=== PATIENT | female | born 1950 | race Caucasian/White ===

== ENCOUNTER → 2024-06-08 12:51 | Outpatient (REF) | payer MEDICARE, OTHER, SELFPAY | LOC: RAD 12:51 | PROVIDERS: ATTENDING PHYSICIAN Internal Medicine | DX: M85.80 Other specified disorders of bone density and structure, unspecified site (principal); E55.9 Vitamin D deficiency, unspecified; M85.89 Other specified disorders of bone density and structure, multiple sites | CPT/HCPCS: 77080 ==

== ENCOUNTER → 2024-06-28 13:51 | Outpatient (REF) | payer MEDICARE, OTHER, SELFPAY | LOC: WDC 13:51 | PROVIDERS: ATTENDING PHYSICIAN Internal Medicine | DX: Z12.31 Encounter for screening mammogram for malignant neoplasm of breast (principal) | CPT/HCPCS: 77063; 77067 ==

== ENCOUNTER → 2024-12-11 10:49 | Outpatient (REF) | payer MEDICARE, OTHER, SELFPAY ==
[2024-12-11 11:53] LABS: % Basophils 0.4 % (0-2); % Eosinophils 0.5 % (0-6); % Immature Granulocytes 0.2 % (0-0.5); % Lymphocytes 28.7 % (20.5-51.1); % Monocytes 8.2 % (1.7-9.3); Absolute Lymphocytes 1.6 10^3/uL (1.2-3.4); Absolute Monocytes 0.5 10^3/uL (0.1-0.6); Absolute Neutrophils 3.5 10^3/uL (1.4-6.5); Hematocrit 42.8 % (37.0-47.0); Hemoglobin 14.5 g/dL (12.0-16.0); Mean Corp Hgb Conc. 33.9 g/dL (33.0-37.0); Mean Corpuscular Hgb 30.8 pg (27.0-31.0); Mean Corpuscular Volume 90.9 fL (81.0-99.0); Mean Platelet Volume 9.8 fL (7.4-10.4); Nucleated Red Blood Cells % 0 %; Platelet Count 216 10^3/uL (130-400); Red Blood Cell Count 4.71 10^6/uL (4.20-5.40); Red Cell Dist. Width 11.9 % (11.5-14.5); White Blood Cell Count 5.6 10^3/uL (4.8-10.8)
[2024-12-11 12:09] LABS: Urine Albumin Negative (Neg - Trace); Urine Bilirubin Negative (Negative); Urine Character Slightly Cloudy (Clear); Urine Color Yellow; Urine Glucose Negative (Negative); Urine Ketone Negative (Negative); Urine Leukocyte 2+ (Negative); Urine Nitrite Negative (Negative); Urine Occult Blood Negative (Negative); Urine Urobilinogen Negative (Neg - 1+)
[2024-12-11 12:18] LABS: ALT (SGPT) 15 U/L (0-35); AST (SGOT) 25 U/L (14-36); Albumin 4.4 g/dl (3.5-5.0); Alkaline Phosphatase 74 U/L (38-126); Blood Urea Nitrogen 16 mg/dl (7-17); Calcium 9.1 mg/dl (8.4-10.2); Carbon Dioxide 29 mmol/L (22-30); Chloride 100 mmol/L (98-107); Glucose 94 mg/dl (70-99); HDL Cholesterol 85 mg/dl; LDL Cholesterol, Calculated 106 mg/dl; Potassium 4.6 mmol/L (3.5-5.1); Sodium 137 mmol/L (135-145); Total Bilirubin 0.8 mg/dl (0.2-1.3); Total Cholesterol 208 mg/dl (50-199); Total Protein 7.1 g/dl (6.3-8.2); Triglyceride 86 mg/dl (10-149); Very Low Density Lipoprotein 17 mg/dl (0-30); eGFR > 60.00
[2024-12-11 12:30] LABS: Urine Amorphous Seen; Urine Bacteria Few (Negative); Urine Red Blood Cell 0-2 /HPF (0-2); Urine White Cell 16-20 /HPF (0-5)
[2024-12-11 12:35] LABS: Vitamin D, 25-OH*** 36.3 ng/mL (30-80)
[2024-12-11 12:48] LABS: TSH 3.18 uIU/ml (0.47-4.68)
== END ==
LOC: REG 10:49
PROVIDERS: ATTENDING PHYSICIAN Internal Medicine
DX: E78.5 Hyperlipidemia, unspecified (principal); M81.0 Age-related osteoporosis without current pathological fracture; M15.0 Primary generalized (osteo)arthritis; E55.9 Vitamin D deficiency, unspecified; J31.0 Chronic rhinitis; Z00.00 Encounter for general adult medical examination without abnormal findings
CPT/HCPCS: 36415; 80053; 80061; 81003; 81015; 82306; 84443; 85025

== ENCOUNTER → 2024-12-25 11:37 | Outpatient (REF) | payer MEDICARE, OTHER, SELFPAY | LOC: RAD 11:37 | PROVIDERS: ATTENDING PHYSICIAN Internal Medicine | DX: N39.0 Urinary tract infection, site not specified (principal) | CPT/HCPCS: 72110 ==

== ENCOUNTER → 2025-06-21 19:28 | Outpatient (REF) | payer MEDICARE, OTHER, SELFPAY | LOC: WDC 19:28 | PROVIDERS: ATTENDING PHYSICIAN Internal Medicine | DX: Z12.31 Encounter for screening mammogram for malignant neoplasm of breast (principal) | CPT/HCPCS: 77063; 77067 ==

== ENCOUNTER 2025-07-01 07:47 | Inpatient (IN) | payer MEDICARE, OTHER, SELFPAY ==
--- NOTE | 2025-06-16 13:02 | CM ---
CM reviewed medical records. CM confirmed demographics with patient. Patient stated that she does live alone, but her boyfriend will be available to assist post operatively. Patient is active with her PCP. Patient has medication coverage. Patient
has ordered her walker and gel packs.
Patient has made her outpatient PT appointments at [facility] for 07/03.
CM will remain available as needed.
PLAN: Home, outpatient PT.
[2025-06-20 11:27] LABS: Hematocrit 39.4 % (37.0-47.0); Hemoglobin 13.4 g/dL (12.0-16.0); Mean Corp Hgb Conc. 34.0 g/dL (33.0-37.0); Mean Corpuscular Volume 90.4 fL (81.0-99.0); Platelet Count 225 10^3/uL (130-400); Red Cell Dist. Width 11.9 % (11.5-14.5)
[2025-06-20 11:59] LABS: ALT (SGPT) 15 U/L (0-35); AST (SGOT) 22 U/L (14-36); Albumin 4.3 g/dl (3.5-5.0); Alkaline Phosphatase 72 U/L (38-126); Blood Urea Nitrogen 13 mg/dl (7-17); Calcium 8.9 mg/dl (8.4-10.2); Carbon Dioxide 28 mmol/L (22-30); Chloride 105 mmol/L (98-107); Glucose 88 mg/dl (70-99); Potassium 4.5 mmol/L (3.5-5.1); Sodium 138 mmol/L (135-145); Total Protein 6.9 g/dl (6.3-8.2); eGFR > 60.00
[2025-06-20 13:33] LABS: Glycohemoglobin (HgbA1c) 5.2 % (4.0-5.6)
[2025-06-20 14:01] VITALS: BMI 23.4
[2025-06-20 15:58] VITALS: BMI 23.4
[2025-07-01] VITALS (24 sets, daily range): BP systolic 90–129; BP diastolic 54–76; PULSE 68; O2SAT 94
--- NOTE | 2025-07-01 07:40 | W.PN.UPDATE ---
Update Note
Progress Note Update
R knee OA s/p R TKA w/ Dr Mcleod 07/01/25
DVT prophylaxis - ASA, b/l venous foot pumps
Dyslipidemia
Abnormal EKG; stress echocardiogram 2020 stable
Diverticulosis
Multilevel degenerative disc disease
Chronic rhinitis
Osteoporosis
[2025-07-01] MEDS: NORMOSOL-R/PLASMALYTE-A 1000 IV ×2 (07:50→17:37)
[2025-07-01] MEDS: CELEBREX 200 MG PO (08:01)
[2025-07-01] MEDS: TYLENOL 650 MG PO ×4 (08:01→20:20)
[2025-07-01] MEDS: ROXICODONE 5 MG PO (12:09)
[2025-07-01] MEDS: SUBLIMAZE 25 MCG IV (14:17)
[2025-07-01] MEDS: ZOFRAN 4 MG IV (14:35)
[2025-07-01] MEDS: COMPAZINE 5 MG IV (16:02)
[2025-07-01] MEDS: ASPIRIN 325 MG PO (17:35)
[2025-07-01] MEDS: ANCEF 5 IV (17:36)
--- NOTE | 2025-07-01 17:56 | W.PN.UPDATE ---
Update Note
Progress Note Update
Patient doing well postop R TKR. Resting in bed. Slight nausea. VSS. Pulm: nonlabored. CV: regular. RLE: Dressing CDI. NVI distally. Calf soft. Able to fully extend. Postop xrays as expected. ASA for DVT prophylaxis. Plan for discharge
home tomorrow with outpatient PT on Friday.
[2025-07-01] MEDS: SENOKOT 17.2 MG PO (20:19)
[2025-07-01] MEDS: BACTROBAN 2% OINTMENT 1 APPLIC NASAL (20:20)
[2025-07-01] MEDS: COLACE 100 MG PO (20:20)
[2025-07-01] MEDS: DECADRON 4 MG PO (20:20)
[2025-07-02] MEDS: ANCEF 5 IV (00:20)
[2025-07-02] MEDS: TYLENOL 650 MG PO ×4 (00:21→11:52)
[2025-07-02 03:00] VITALS: BP 110/57
[2025-07-02 07:00] VITALS: BP 115/56
--- NOTE | 2025-07-02 07:20 | W.PN.ORTHO ---
Today's Communication / Plan
-
Plan for discharge home with outpatient PT. ASA for DVT prophylaxis
Assessment
.
Distal Motor Intact: Yes
Dressing:
Bloody drainage as expected. Dressing changed
Assessment:
Doing well s/p R TKR
Plan
.
Activity:
Out of bed.
PT/OT
Discharge Plan: Home w/ Outpatient PT
Subjective
.
.:
Patient resting comfortably.
Has been OOB
Vital Signs and Labs
.
Vital Signs and Labs:
Lab Results
06/20/25 11:01
06/20/25 11:01
Temp Pulse Resp BP Pulse Ox
98.2 F 78 18 110/57 96
07/02/25 03:00 07/02/25 03:00 07/02/25 03:00 07/02/25 03:00 07/02/25 03:00
Physical Exam
-
Pulm: nonlabored
CV: regular
RLE: Calf soft. ROM 0-90 degrees. NVi distally
[2025-07-02] MEDS: SENOKOT 17.2 MG PO (07:25)
[2025-07-02] MEDS: COLACE 100 MG PO (07:25)
[2025-07-02] MEDS: ASPIRIN 325 MG PO (07:25)
[2025-07-02] MEDS: DECADRON 4 MG PO (07:25)
[2025-07-02] MEDS: CELEBREX 200 MG PO (07:25)
[2025-07-02] MEDS: BACTROBAN 2% OINTMENT 1 APPLIC NASAL (07:25)
--- NOTE | 2025-07-02 08:27 | W.DS.TRANS ---
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
-
Discharge Instructions:
Sleep Apnea Risk Low
Discharge Diagnosis/Procedures R knee OA s/p R TKA w/ Dr Mcleod 07/01/25
Diet Regular
Additional Diets Adequate hydration, minimize opioids, and wear
TEDs stockings to prevent low blood pressure/
dizziness.
Activity As tolerated,With Walker
Driving Restrictions Not until seen by your Dr
Bathing Restrictions OK to Shower
Other Services PT
Wound Care Dressing to be removed 1 week post-surgery.
Jennifer to be removed at 2 week follow-up with
surgeon's office.
Instructions:
Stand-Alone Forms: Total Hip/Knee Replacement D/C
Changes to Home Medications: No
Discharge Medications:
DC Medications w/original date entered in [place] [facility]
ibandronate 150 mg tablet 150 mg PO QMONTH osteoperosis 06/17/25
multivitamin 1 tab PO DAILY Supplement 06/17/25
mupirocin 2 % topical ointment 1 applic intranasal BID #1 tube 06/20/25
celecoxib 200 mg capsule (Celebrex) 200 mg PO DAILY #14 caps 06/23/25
dexamethasone 4 mg tablet 4 mg PO BID Anti-inflammatory #5 tabs 06/23/25
famotidine 20 mg tablet (Pepcid) 20 mg PO HS #30 tabs 06/23/25
ondansetron HCl 4 mg tablet 4 mg PO Q6H PRN nausea and vomiting #30 tabs 06/23/25
oxycodone 5 mg tablet 5 - 10 mg (1 - 2 x 5 mg) PO Q6H PRN moderate-severe pain #30 tabs 06/23/25
acetaminophen 500 mg tablet (Tylenol Extra Strength) 1,000 mg (2 x 500 mg) PO Q6H #60 tabs 07/01/25
aspirin 325 mg tablet 325 mg PO DAILY #30 tabs 07/01/25
docusate sodium 100 mg capsule 100 mg PO BID #30 caps 07/01/25
sennosides 8.6 mg tablet (Caroline-noah) 17.2 mg (2 x 8.6 mg) PO BID #30 tabs 07/01/25
Home Medication Changes
Pending Results: No
[2025-07-02 11:00] VITALS: BP 120/59
--- NOTE | 2025-07-02 11:25 | CM ---
CM met with pt and sig other who confirmed that dc plan is for outpatient PT and pt already owns a RW.Sig other to transport home.
[2025-07-02 11:48] VITALS: BP 120/59; PULSE 80; O2SAT 97
== END 2025-07-02 12:00 | disposition home or self-care (01) | DRG 470 ==
LOC: 2 SOUTH 07:47
PROVIDERS: ADMITTING PHYSICIAN Orthopaedic Surgery; FAMILY PHYSICIAN Internal Medicine
PROC: 0SRC0J9 Replacement of Right Knee Joint with Synthetic Substitute, Cemented, Open Approach (ICD-10-PCS; 2025-07-01)
DX: M17.0 Bilateral primary osteoarthritis of knee (principal); E78.5 Hyperlipidemia, unspecified; J31.0 Chronic rhinitis; K57.30 Diverticulosis of large intestine without perforation or abscess without bleeding; M81.0 Age-related osteoporosis without current pathological fracture; R94.31 Abnormal electrocardiogram [ECG] [EKG]; M85.859 Other specified disorders of bone density and structure, unspecified thigh; Z79.899 Other long term (current) drug therapy; Z79.82 Long term (current) use of aspirin
CPT/HCPCS: 36415; 73560; 80053; 83036; 85027; 87070; 93005; 97110; 97116; 97162; 97166; 97535; C1713; C1776

== ENCOUNTER 2025-07-29 14:09 | Outpatient (RCR) | payer MEDICARE, OTHER, SELFPAY | END 2025-07-29 23:59 | disposition home or self-care (01) | LOC: RPT 14:09 | PROVIDERS: ATTENDING PHYSICIAN Orthopaedic Surgery; FAMILY PHYSICIAN Internal Medicine | DX: Z47.1 Aftercare following joint replacement surgery (principal); Z73.6 Limitation of activities due to disability; Z96.651 Presence of right artificial knee joint | CPT/HCPCS: 97010; 97110; 97140; 97161; 97530 ==

== ENCOUNTER 2025-08-12 14:14 | Outpatient (RCR) | payer MEDICARE, OTHER, SELFPAY | END 2025-08-12 23:59 | disposition home or self-care (01) | LOC: RPT 14:14 | PROVIDERS: ATTENDING PHYSICIAN Orthopaedic Surgery; FAMILY PHYSICIAN Internal Medicine | DX: Z47.1 Aftercare following joint replacement surgery (principal); Z73.6 Limitation of activities due to disability; Z96.651 Presence of right artificial knee joint; M62.81 Muscle weakness (generalized); R26.89 Other abnormalities of gait and mobility; M25.561 Pain in right knee | CPT/HCPCS: 97010; 97110; 97140; 97530 ==